=== PATIENT | female | born 1955 | race Caucasian/White ===

== ENCOUNTER 2016-08-26 06:30 | Day surgery (SDC) | payer BC ==
[2016-08-25 11:45] VITALS: BMI 25.0
[2016-08-26] MEDS ORDERED: SODIUM CHLORIDE IVPB ONE (08:00)
[2016-08-26] MEDS ORDERED: DESMOPRESSIN ACETATE IVPB ONE (08:00)
[2016-08-26] MEDS ORDERED: LIDOCAINE HCL 2% (20ML MULTI-DOSE VIAL) NR ONE (11:22)
[2016-08-26] MEDS ORDERED: PROPOFOL 20 ML ONE ×2 (11:22)
[2016-08-26 12:16] VITALS: TEMP 97.6
[2016-08-26 13:05] VITALS: BP 108/72; PULSE 57
--- NOTE | 2016-08-27 12:01 | PATH ---
Surgical Pathology Report Patient Name: JOLENE BELTRAN [facility]. Rec. #: [id number] /Age/Gender: 1955 (Age: 61) / F Account: [id number] Location: U-ENDOSCOPY Taken: 08/26/2016 Received: 08/26/2016 Reported: 08/27/2016 Physicians: Moshe Ricketts D.O. Specimen(s) Received A: BX PYLORIC EROSION PROMINENT FOLD B: BX EROSIONSANTRUM C: BX BODY D: BX POLYP SIGMOID Clinical History Screening, GERD Gastritis, sigmoid polyp, hemorrhoids, diverticulosis Final Diagnosis A. STOMACH, PYLORIC FOLD, BIOPSY: REACTIVE GASTROPATHY WITH FOCAL INTESTINAL METAPLASIA. NO DYSPLASIA IDENTIFIED. IMMUNOSTAIN FOR H. PYLORI IS NEGATIVE. B. STOMACH, ANTRUM, BIOPSY: MILD REACTIVE GASTROPATHY. IMMUNOSTAIN FOR H. PYLORI IS NEGATIVE. C. STOMACH, BODY, BIOPSY: FOCAL MILD CHRONIC GASTRITIS. IMMUNOSTAIN FOR H. PYLORI IS NEGATIVE. D. COLON, SIGMOID, BIOPSY: NONSPECIFIC ACTIVE COLITIS WITH PROMINENT SUBMUCOSAL LYMPHOID AGGREGATE. NO MUCOSAL ARCHITECTURAL DISTORTION, GRANULOMAS, OR DYSPLASIA IDENTIFIED. Comment: Recommend correlation with clinical findings and followup as clinically indicated. Electronically Signed Wale Celaya M.D. Gross Description A. Received in formalin, labeled "biopsy prominent fold pyloric erosion" are 4 rodriguez, irregular portions of soft tissue averaging 0.3 cm. in greatest dimension. The specimens are submitted in toto in one cassette. B. Received in formalin, labeled "biopsy erosions antrum" are 3 rodriguez, irregular portions of soft tissue ranging from 0.1-0.4 cm. in greatest dimension. The specimens are submitted in toto in one cassette. C. Received in formalin, labeled "biopsy body" are 2 rodriguez, irregular portions of soft tissue measuring 0.2 and 0.4 cm. in greatest dimension. The specimens are submitted in toto in one cassette. D. Received in formalin, labeled "biopsy sigmoid polyp" are 2 rodriguez, irregular portions of soft tissue averaging 0.2 cm. in greatest dimension. The specimens are submitted in toto in one cassette. 08/26/201608/26/2016
== END 2016-08-26 13:05 | disposition home or self-care (01) ==
LOC: JASU-ENDO 06:30
PROVIDERS: ATTEND Internal Medicine Gastroenterology
PROC: 3E033GC Introduction of Other Therapeutic Substance into Peripheral Vein, Percutaneous Approach (ICD-10-PCS; 2016-08-26)
PROC: 0DBN8ZX Excision of Sigmoid Colon, Via Natural or Artificial Opening Endoscopic, Diagnostic (ICD-10-PCS; principal; 2016-08-26 08:00)
PROC: 0DB68ZX Excision of Stomach, Via Natural or Artificial Opening Endoscopic, Diagnostic (ICD-10-PCS; 2016-08-26 08:00)
DX: Z12.11 Encounter for screening for malignant neoplasm of colon (principal); K57.30 Diverticulosis of large intestine without perforation or abscess without bleeding; D12.5 Benign neoplasm of sigmoid colon; D17.5 Benign lipomatous neoplasm of intra-abdominal organs; K64.8 Other hemorrhoids; K21.9 Gastro-esophageal reflux disease without esophagitis; D68.0 Von Willebrand disease
CPT/HCPCS: 43239; 45380; 96365; J2597; 88305-TC; 88342-TC

== ENCOUNTER 2020-01-23 04:31 | Day surgery (SDC) | payer OTHER, BC ==
[2020-01-22 14:44] VITALS: BMI 26.3
[~2020-01-23 04:31] MED LIST: BUPIVACAINE HCL/PF 0.5% (5 MG/ML) 30 ML VIAL IJ ONE; LIDOCAINE 1%/EPI 1:100000 (50 ML MULTI DOSE VIAL) INF ONE; ceFAZolin SODIUM 1 GM VIAL IVPB ONE
--- OUTSIDE RECORDS SUMMARY | 2020-01-23 04:44 | XMS ---
:1955 Author Organization [facility] Support Name Relationship Address Phone RE, RETIRED Unavailable Unavailable Unavailable RE Unavailable Unavailable Unavailable DELORIS CARAB[employer]O [employer] Unavailable [address] [place] [address] YOBE Unavailable [address] [place] [address] JONATHAN BELTRAN [address] [place] [address] Re-disclosure Warning The records that you are about to access may contain information from federally- assisted alcohol or drug abuse programs. If such information is present, then the following federally mandated warning applies: This information has been disclosed to you from records protected by federal confidentiality rules (42 CFR part 2). The federal rules prohibit you from making any further disclosure of this information unless further disclosure is expressly permitted by the written consent of the person to whom it pertains or as otherwise permitted by 42 CFR part 2. A general authorization for the release of medical or other information is NOT sufficient for this purpose. The Federal rules restrict any use of the information to criminally investigate or prosecute any alcohol or drug abuse patient.The records that you are about to access may contain highly sensitive health information, the redisclosure of which is protected by Article 27-F of the [facility] Public Health law. If you continue you may haveaccess to information: Regarding HIV / AIDS; Provided by facilities licensed or operated by the [facility] Office of Mental Health; or Provided by the [facility] Office for People With Developmental Disabilities. If such information is present, then the following [facility] mandated warning applies: This information has been disclosed to you from confidential records which are protected by state law. State law prohibits you from making any further disclosure of this information without the specific written consent of the person to whom it pertains, or as otherwise permitted by law. Any unauthorized further disclosure in violation of state law may result in a fine or long-term sentence or both. A general authorization for the release of medical or other information is NOT sufficient authorization for further disclosure. Insurance Providers Payer name Policy type Policy ID Covered Covered libertarian's Policy P noam / Coverage libertarian ID relationship to Beard Inf ormation type beard BC PPO [id number] SP [id number] MEDICARE [id number] SP [id number] Results ID Date Data Source [id number] 01/18/2020 11:25:00 AM EDT [facility] Name Value Range Interpretation Description Data Sup porting Code Source(s) Document(s ) SARS [facility] coronavirus 2 RNA This lab was ordered by [facility] and reported by [facility]. ID Date Data Source [id number] 12/22/2019 12:28:00 PM EDT [facility] Name Value Range Interpretation Description Data Sup porting Code Source(s) Document(s ) SARS [facility] coronavirus 2 RNA This lab was ordered by [facility] and reported by [facility]. Procedure
--- NOTE | 2020-01-23 09:45 | HP ---
Satellite [facility] - Chief Complaint Chief Complaint: right knee pain - Past Medical History Allergies/Adverse Reactions: Allergies Allergy/AdvReac Type Severity Reaction Status Date / Time No Known Allergies Allergy Verified 08/25/16 09:17 - Current Medications Current Medications: Home Medications Medication Instructions Recorded Atorvastatin Ca [Lipitor] 10 mg PO HS 08/25/16 Biotin [Yo Biotin] 10,000 mcg PO HS 08/25/16 Cholecalciferol (Vitamin D3) 1,000 unit PO HS 08/25/16 [Vitamin D3 -] Famotidine [Pepcid] 20 mg PO HS 08/25/16 Losartan Potassium 50 mg PO HS 08/25/16 Oxycodone HCl/Acetaminophen 1 tab PO Q6H #12 tablet MDD 4 01/23/20 [Percocet 5-325 mg Tablet] Satellite Physical Exam - Physical Examination General Appearance: Well Nourished, Well Developed, Alert & Oriented x3 ENT: Clear Lung: Normal air movement Extremities: Other (right knee- +swelling, + ttp, decr rom, + mcmurrays, nvi) Neurological: Intact, Alert, Oriented Satellite Impression/Plan - Impression/Plan Impression: right knee internal derangement Operative Procedure: right knee arthroscopy Date to be Performed: 01/23/20
[2020-01-23] MEDS ORDERED: LIDOCAINE 1%/EPI 1:100000 (50 ML MULTI DOSE VIAL) ONE (12:22)
[2020-01-23] MEDS ORDERED: ONDANSETRON 4 MG/2 ML VIAL IVPUSH PRN (12:37)
[2020-01-23] MEDS ORDERED: PROMETHAZINE HCL 25 MG/1 ML VIAL IVPUSH PRN (12:37)
[2020-01-23] MEDS ORDERED: oxyCODONE HCL 5 MG TABLET PO PRN (12:37)
[2020-01-23] MEDS ORDERED: LACTATED RINGERS SOLUTION 1,000 ML IV SCH (12:45)
[2020-01-23] MEDS ORDERED: MIDAZOLAM HCL 2 MG/2 ML SINGLE DOSE VIAL ONE (13:06)
[2020-01-23] MEDS ORDERED: PROPOFOL 20 ML ONE (13:06)
[2020-01-23] MEDS ORDERED: DEXAMETHASONE SOD PHOSPHATE 4 MG/1 ML VIAL ONE (13:39)
[2020-01-23] MEDS ORDERED: GLYCOPYRROLATE 0.2 MG/1 ML VIAL ONE (13:39)
[2020-01-23] MEDS ORDERED: KETOROLAC TROMETHAMINE 30 MG/1 ML VIAL ONE (13:45)
[2020-01-23] MEDS ORDERED: LIDOCAINE 1%/EPI 1:100000 (50 ML MULTI DOSE VIAL) INF ONE (13:50)
[2020-01-23] MEDS ORDERED: BUPIVACAINE HCL/PF 0.5% (5 MG/ML) 30 ML VIAL IJ ONE (13:58)
--- NOTE | 2020-01-23 14:37 | OP ---
Operative Note - Note: [facility] Pre-Operative Diagnosis: right knee internal derangement Operation: right knee arthroscopy with PMM, PLM Post-Operative Diagnosis: Same as Pre-op Surgeon: Calderon Gómez Anesthesia: General, Local Specimens Removed: shavings Estimated Blood Loss (mls): 5
[2020-01-23 18:06] VITALS: BP 128/56; PULSE 69; TEMP 98
--- NOTE | 2020-01-23 20:15 | OP ---
DATE OF OPERATION: 01/23/2020 PREOPERATIVE DIAGNOSIS: Internal derangement right knee. POSTOPERATIVE DIAGNOSIS: Internal derangement right knee. PROCEDURE: Arthroscopy right knee with partial medial meniscectomy and partial lateral meniscectomy. SURGICAL ATTENDING: Calderon Gómez MD. ANESTHESIA: General with LMA. CLOSURE: 4-0 nylon. COMPLICATIONS: None. CONDITION: To recovery in stable condition. DESCRIPTION OF OPERATIVE PROCEDURE: Patient was taken to the operating room on January 23, 2020. General anesthesia with LMA was administered by the anesthesiologist. Right lower extremity was prepped and draped in the usual sterile fashion. The medial and lateral infrapatellar portal sites then made with 15-blade followed by blunt trocar. The scope was placed in the lateral infrapatellar portal and up into the suprapatellar pouch. The knee inflated with a cocktail of 10 mL of 1% Xylocaine, 10 mL 0.5% Marcaine and 20 mL of arthroscopic saline. After allowing the anesthetic to work, the procedure was performed. The pouch was visualized to be clean, the medial and lateral gutters were visualized to be clean. The medial surface of patella and trochlea were visualized to be intact. With valgus stress on the knee, the medial meniscus was visualized and probed and found to have a complex tear at the posterior horn. This was debrided arthroscopic shaver. The medial femoral condyle was run and found to be basically intact as was the medial tibial plateau. At 90 degrees, the ACL was visualized and probed and found to be intact. There was a large displaced intrameniscal ligament that was debrided, which was abrading on the femoral condyles. In the figure of 4 position, the lateral compartment was entered. The lateral meniscus was found to have a complex tear of its anterior horn all the way back to its mid portion; this was debrided back to stable meniscal tissues with meniscal biter and arthroscopic shaver. The posterior horn was intact. The lateral femoral condyle was run and was found to be intact as was the lateral tibial plateau. The knee was irrigated with copious amounts of irrigation. Port was closed with 4-0 nylon. Prior to closure, 20 mL of 0.5% Marcaine was infused into the knee for postoperative analgesia. Sterile pressure dressing was placed over the knee. Patient awakened from anesthesia and transferred to recovery in stable condition. No complications. Estimated blood loss negligible. CALDERON GÓMEZ M.D. [id number]
--- NOTE | 2020-01-25 17:29 | PATH ---
Surgical Pathology Report Patient Name: JOLENE BELTRAN [place]. Rec. #: [id number] /Age/Gender: 1955 (Age: 64) / F Account: [id number] Location: [facility] SUR[facility] Taken: 01/23/2020 Received: 01/24/2020 Reported: 01/25/2020 Physicians: Calderon Gómez M.D. Specimen(s) Received RIGHT KNEE SHAVINGS Clinical History Right knee tear Final Diagnosis RIGHT KNEE SHAVINGS: FIBROCARTILAGINOUS AND SYNOVIAL TISSUE WITH FOCAL CHRONIC INFLAMMATION AND REACTIVE CHANGE. Electronically Signed Leonor Wood M.D. Gross Description Received in formalin, labeled "right knee shavings," is a 5.5 x 4.5 x 0.8 cm. aggregate of rodriguez-yellow soft tissue fragments. A utility sales representative portion is submitted in one cassette. /01/24/2020 saudi01/24/2020
== END 2020-01-23 18:07 | disposition home or self-care (01) ==
LOC: JASU-SURG 04:31
PROVIDERS: ATTEND Orthopaedic Surgery
PROC: 0SBC4ZZ Excision of Right Knee Joint, Percutaneous Endoscopic Approach (ICD-10-PCS; 2020-01-23)
PROC: 0SBC4ZZ Excision of Right Knee Joint, Percutaneous Endoscopic Approach (ICD-10-PCS; principal; 2020-01-23 13:00)
DX: S83.231A Complex tear of medial meniscus, current injury, right knee, initial encounter (principal); S83.271A Complex tear of lateral meniscus, current injury, right knee, initial encounter; X58.XXXA Exposure to other specified factors, initial encounter; Y93.9 Activity, unspecified; Y92.9 Unspecified place or not applicable; Y99.9 Unspecified external cause status
CPT/HCPCS: 88304-TC; 94760

== ENCOUNTER 2020-09-20 18:52 | Emergency (ER) | payer OTHER, BC ==
[2020-09-22 10:11] LABS: SARS-CoV-2 NAA Not Detected (Not Detected)
== END 2020-09-20 19:52 | disposition home or self-care (01) ==
LOC: JVIRT 18:52
DX: J02.9 Acute pharyngitis, unspecified (principal); Z11.52 Encounter for screening for COVID-19
CPT/HCPCS: C9803; G2251-GT; U0003; U0005